=== PATIENT | female | born 1945 | race Caucasian/White ===

== ENCOUNTER 2024-02-28 15:12 | Inpatient (IN) | payer MEDICARE, SELFPAY ==
[2024-02-28] VITALS (12 sets, daily range): BP systolic 129–178; BP diastolic 72–111; PULSE 75–93; RESP 17–36; TEMP 36.6–37.1; O2SAT 90–96; BMI 23.9
--- NOTE | 2024-02-28 16:17 | XRR_ITS ---
PROCEDURE INFORMATION: Exam: XR Chest Exam date and time: 02/28/2024 4:31 PM Age: 78 years old Clinical indication: Cough and fever; Patient HX: HX of testicular cancer; Additional info: SOB, cough TECHNIQUE: Imaging protocol: Radiologic exam of the chest. Views: 1 view. COMPARISON: No relevant prior studies available. FINDINGS: Lungs: No consolidation. Pleural spaces: No sizable pleural effusion or pneumothorax. Heart/Mediastinum: No cardiomegaly. Bones/joints: Unremarkable. XR/XR chest 1V portable [id number] IMPRESSION: No acute intrathoracic findings.
--- NOTE | 2024-02-28 16:17 | PC.NURSE ---
PATIENT PLACED ON 2 L NC DUE TO O2 SATURATION OF 88%.
--- NOTE | 2024-02-28 16:19 | ED_ITS ---
Documented by User: MAXINE Umaña 02/28/24 17:05 HPI - URI/Sore Throat 2 General: Chief Complaint: Upper Respiratory Infection Stated Complaint: cough, sore throat, fever Time Seen by Provider: 02/28/24 16:08 Source: patient and family Mode of arrival: ambulatory Limitations: no limitations History of Present Illness: Patient is a 78-year-old female here along with family for evaluation of shortness of breath, cough, congestion, nasty phlegm production , and subjective fevers. Symptoms have been present over the past 3 to 4 days. Patient is an everyday smoker. She states she has oxygen at home that she is instructed to wear as needed. Reports previous hospitalization last week at [facility] for dehydration and dizziness . She reportedly resides with her who unfortunately recently fractured his leg and is now in a correction. Family is wanting correction placement for patient as well as the was her primary caregiver. MD elicited complaint: fever (subjective), cough and other (dyspnea, congestion) Pertinent past history: COPD Onset (ago): day(s) Consistency: constant Severity: moderate Description of mucous: yellow and green Able to tolerate fluids by mouth: Yes Exacerbating factors: nothing Relieving factors: nothing Context: recent hospitalization Associated symptoms: Reports fever(s) (subjective); Deny abdominal pain, chills, chest pain, diarrhea, headache(s), nasal congestion, nausea, sinus pain or vomiting Treatments prior to arrival: none Review of Systems 2 Const: Reports: fever(s) (subjective); Denies: chills, body aches, fatigue or malaise ENMT: Denies: throat pain, odynophagia, nasal discharge, nasal congestion or sinus pain Card: Denies: chest pain, palpitations, irregular heart rhythm or lightheadedness Resp: Reports: dyspnea, productive cough, change in phlegm color and chest congestion; Denies: pain on inspiration GI: Denies: abdominal pain, nausea, vomiting or diarrhea : Denies: flank pain, dysuria or hematuria Musc: Denies: neck pain, back pain, extremity pain or joint pain Skin/Breast: Denies: rash Neuro: Denies: headache(s), numbness in extremities, weakness in extremities, sensory changes or dizziness Physical Exam 2 Const: COMMON NORMALS: no acute distress, patient oriented x3, no limitations, alert and well nourished GENERAL APPEARANCE: cooperative O RIENTATION/CONSCIOUSNESS: Yes awake, Yes oriented to person, Yes oriented to place and Yes oriented to time HENMT: FACE & SINUS: normal facial exam Neck/C-Spine: COMMON NORMALS: no JVD Chest: COMMONS NORMALS: normal inspection of the chest and normal palpation of entire chest wall Resp: EFFORT & INSPECTION: Yes labored and Yes other (hypoxia-satting 86-87% on RA) AUSCULTATION: diminished lung sounds Cardio: COMMON NORMALS: no JVD, regular rate and regular rhythm RATE: r egular rate RHYTHM: regular rhythm GI: COMMON NORMALS: Normal to inspection, nondistended, normoactive bowel sounds present, Soft to palpation and non-tender PALPATION: Yes Soft to palpation Extremity: COMMON NORMALS: no clubbing, cyanosis or edema, no calf tenderness and no pedal edema GENERAL: Yes normal exam except as noted Neuro: KARMEN COMA SCALE: document GCS findings Karmen coma scale eye opening: Spontaneous [place] coma scale verbal response: Orientated [place] coma scale motor response: Obey commands [place] coma scale total score: 15 COMMON NORMALS: patient oriented x3 SENSORIUM/ORIENTATION: Yes alert, Yes oriented to person, Yes oriented to place and Yes oriented to time Skin: COMMON NORMALS: no rashes or lesions noted GENERAL SKIN EXAM: no rashes or lesions noted Course 2 Vital Signs: Vital signs: Vital Signs Temperature 98 F 02/28/24 15:16 Pulse Rate 90 02/28/24 16:44 Respiratory Rate 18 02/28/24 16:39 Blood Pressure 178/111 02/28/24 15:16 Pulse Oximetry 95 02/28/24 16:39 Oxygen Delivery Me thod Nasal Cannula 02/28/24 16:39 Oxygen Flow Rate 1 02/28/24 16:39 MDM - URI/Sore Throat Lab Data 02/28/24 16:38 02/28/24 16:38 Laboratory Results WBC 24.01 10^3/uL (3.29-11.43) H 02/28/24 16:38 RBC 6.38 10^6/uL (3.85-5.65) H 02/28/24 16:38 Hgb 18.60 g/dL (11.27-16.99) H 02/28/24 16:38 Hct 57.8 % (36-47) H 02/28/24 16:38 MCV 90.6 fl (85-98) 02/28/24 16:38 MCH 29.2 pg (27-33) 02/28/24 16:38 MCHC 32.2 g/dL (30-55) 02/28/24 16:38 RDW 13.4 % (12.1-15.1) 02/28/24 16:38 Plt Count 247 10^3/cmm (157-399) 02/28/24 16:38 MPV 9.9 fL (7.4-10.4) 02/28/24 16:38 Neut % (Auto) 83.9 % 02/28/24 16:38 Lymph % (Auto) 8.2 % 02/28/24 16:38 [place] % (Auto) 6.8 % 02/28/24 16:38 Eos % (Auto) 0.2 % 02/28/24 16:38 Baso % (Auto) 0.4 % 02/28/24 16:38 Neut # (Auto) 20.12 10^3/uL (1.8-7.7) H 02/28/24 16:38 Lymph # (Auto) 2.0 10^3/uL (0.8-4.8) 02/28/24 16:38 [place] # (Auto) 1.6 10^3/uL (0.2-0.9) H 02/28/24 16:38 Eos # (Auto) 0.1 10^3/uL (0.0-0.8) 02/28/24 16:38 Baso # (Auto) 0.1 10^3/uL (0.0-0.1) 02/28/24 16:38 Nucleated RBC % (auto) 0 % 02/28/24 16:38 Nucleated RBCs # 0.0 /100WBC 02/28/24 16:38 Sodium 138 mmol/L (136-145) 02/28/24 16:38 Potassium 3.2 mmol/L (3.5-5.1) L 02/28/24 16:38 Chloride 93 mmol/L (98-107) L 02/28/24 16:38 Carbon Dioxide 34 mmol/L (22-29) H 02/28/24 16:38 Anion Gap 14.2 (5-19) 02/28/24 16:38 BUN 12 mg/dL (8-23) 02/28/24 16:38 Creatinine 0.6 mg/dL (0.5-0.9) 02/28/24 16:38 GFR Calculation Not Reportable 02/28/24 16:38 Glucose 159 mg/dL (65-115) H 02/28/24 16:38 Calculated Osmolality 289 mOsm/kg (285-295) 02/28/24 16:38 Lactic Acid 1.7 mmol/L (0.5-2.2) 02/28/24 16:38 Calcium 9.4 mg/dL (8.5-10.5) 02/28/24 16:38 Total Bilirubin 1.5 mg/dL (0.15-1.2) H 02/28/24 16:38 AST 22 U/L (0-32) 02/28/24 16:38 ALT 30 U/L (0-33) 02/28/24 16:38 Alkaline Phosphatase 86 U/L (35-105) 02/28/24 16:38 Total Protein 7.5 g/dL (6.6-8.7) 02/28/24 16:38 Albumin 3.8 g/dL (3.5-5.2) 02/28/24 16:38 Globulin 3.7 g/dL (1.3-4.6) 02/28/24 16:38 Procalcitonin 0.11 ng/mL (0-0.5) 02/28/24 16:38 SARS-CoV-2 Ag (Rapid) negative (Negative) 02/28/24 16:18 Discharge Plan Discharge Patient Disposition: Admitted As Inpatient Clinical Impression: Bronchitis, Leukocytosis, Hypoxia Condition: Stable Coding Level of Care Code ED Fish Conservationist for Chg Fwd Documented by User: Jhon Douglas MD 02/28/24 17:45 HPI - URI/Sore Throat 2 General: Chief Complaint: Upper Respiratory Infection Stated Complaint: cough, sore throat, fever Time Seen by Provider: 02/28/24 16:08 Physical Exam 2 Neuro: KARMEN COMA SCALE: document GCS findings Karmen coma scale total score: 15 Course 2 Vital Signs: Vital signs: Vital Signs Temperature 98 F 02/28/24 15:16 Pulse Rate 90 02/28/24 16:44 Respiratory Rate 18 02/28/24 16:39 Blood Pressure 178/111 02/28/24 15:16 Pulse Oximetry 95 02/28/24 16:39 Oxygen Delivery Me thod Nasal Cannula 02/28/24 16:39 Oxygen Flow Rate 1 02/28/24 16:39 MDM - URI/Sore Throat Medical Decision Making Patient presents with cough congestion patient is requiring 2 L of oxygen here she also has a leukocytosis of 24 no definite pneumonia on her chest x-ray did start antibiotics we will get blood cultures spoke to the hospitalist will admit Medical Records I reviewed the patient's medical records. Lab Data I reviewed the patient's lab results. 02/28/24 16:38 02/28/24 16:38 Laboratory Results WBC 24.01 10^3/uL (3.29-11.43) H 02/28/24 16:38 RBC 6.38 10^6/uL (3.85-5.65) H 02/28/24 16:38 Hgb 18.60 g/dL (11.27-16.99) H 02/28/24 16:38 Hct 57.8 % (36-47) H 02/28/24 16:38 MCV 90.6 fl (85-98) 02/28/24 16:38 MCH 29.2 pg (27-33) 02/28/24 16:38 MCHC 32.2 g/dL (30-55) 02/28/24 16:38 RDW 13.4 % (12.1-15.1) 02/28/24 16:38 Plt Count 247 10^3/cmm (157-399) 02/28/24 16:38 MPV 9.9 fL (7.4-10.4) 02/28/24 16:38 Neut % (Auto) 83.9 % 02/28/24 16:38 Lymph % (Auto) 8.2 % 02/28/24 16:38 [place] % (Auto) 6.8 % 02/28/24 16:38 Eos % (Auto) 0.2 % 02/28/24 16:38 Baso % (Auto) 0.4 % 02/28/24 16:38 Neut # (Auto) 20.12 10^3/uL (1.8-7.7) H 02/28/24 16:38 Lymph # (Auto) 2.0 10^3/uL (0.8-4.8) 02/28/24 16:38 [place] # (Auto) 1.6 10^3/uL (0.2-0.9) H 02/28/24 16:38 Eos # (Auto) 0.1 10^3/uL (0.0-0.8) 02/28/24 16:38 Baso # (Auto) 0.1 10^3/uL (0.0-0.1) 02/28/24 16:38 Nucleated RBC % (auto) 0 % 02/28/24 16:38 Nucleated RBCs # 0.0 /100WBC 02/28/24 16:38 Sodium 138 mmol/L (136-145) 02/28/24 16:38 Potassium 3.2 mmol/L (3.5-5.1) L 02/28/24 16:38 Chloride 93 mmol/L (98-107) L 02/28/24 16:38 Carbon Dioxide 34 mmol/L (22-29) H 02/28/24 16:38 Anion Gap 14.2 (5-19) 02/28/24 16:38 BUN 12 mg/dL (8-23) 02/28/24 16:38 Creatinine 0.6 mg/dL (0.5-0.9) 02/28/24 16:38 GFR Calculation Not Reportable 02/28/24 16:38 Glucose 159 mg/dL (65-115) H 02/28/24 16:38 Calculated Osmolality 289 mOsm/kg (285-295) 02/28/24 16:38 Lactic Acid 1.7 mmol/L (0.5-2.2) 02/28/24 16:38 Calcium 9.4 mg/dL (8.5-10.5) 02/28/24 16:38 Total Bilirubin 1.5 mg/dL (0.15-1.2) H 02/28/24 16:38 AST 22 U/L (0-32) 02/28/24 16:38 ALT 30 U/L (0-33) 02/28/24 16:38 Alkaline Phosphatase 86 U/L (35-105) 02/28/24 16:38 Total Protein 7.5 g/dL (6.6-8.7) 02/28/24 16:38 Albumin 3.8 g/dL (3.5-5.2) 02/28/24 16:38 Globulin 3.7 g/dL (1.3-4.6) 02/28/24 16:38 Procalcitonin 0.11 ng/mL (0-0.5) 02/28/24 16:38 SARS-CoV-2 Ag (Rapid) negative (Negative) 02/28/24 16:18 All radiology interpretation(s) finalized by discharge Discharge Plan Discharge Patient Disposition: Admitted As Inpatient Clinical Impression: Bronchitis, Leukocytosis, Hypoxia Condition: Stable Coding Level of Care Code ED Fish Conservationist for Candi Goodman
[2024-02-28] MEDS: ipratropium-albuterol 3 mL Neb INHALATION ×2 (16:41→21:09)
[2024-02-28 16:45] LABS: Basophils # 0.1 10^3/uL (0.0-0.1); Basophils % 0.4 %; Eosinophils # 0.1 10^3/uL (0.0-0.8); Eosinophils % 0.2 %; Hematocrit 57.8 % (36-47); Lymphocytes % 8.2 %; Mean Corpuscular HGB Conc 32.2 g/dL (30-55); Mean Corpuscular Hemoglobin 29.2 pg (27-33); Mean Corpuscular Volume 90.6 fl (85-98); Mean Platelet Volume 9.9 fL (7.4-10.4); Monocytes # 1.6 10^3/uL (0.2-0.9); Monocytes % 6.8 %; Neutrophils # 20.12 10^3/uL (1.8-7.7); Neutrophils % 83.9 %; Nucleated Red Blood Cells % 0 %; Platelet Count 247 10^3/cmm (157-399); Red Blood Count 6.38 10^6/uL (3.85-5.65); Red Cell Distribution Width 13.4 % (12.1-15.1); White Blood Count 24.01 10^3/uL (3.29-11.43)
[2024-02-28 17:01] LABS: SARS Covid-2 Antigen negative (Negative)
[2024-02-28 17:09] LABS: Lactic Sepsis W/Reflex 1.7 mmol/L (0.5-2.2)
[2024-02-28] MEDS: hyDRALAzine 20 mg/mL INJ 1 mL 10 MG IVP (17:15)
[2024-02-28] MEDS: levofloxacin-dextrose 5 % 500 MG/100 ML PREMIX 100 MG IV (17:16)
[2024-02-28 17:21] LABS: Alanine Aminotransferase 30 U/L (0-33); Albumin Level 3.8 g/dL (3.5-5.2); Alkaline Phosphatase 86 U/L (35-105); Anion Gap 14.2 (5-19); Aspartate Amino Transferase 22 U/L (0-32); Blood Urea Nitrogen 12 mg/dL (8-23); Calcium 9.4 mg/dL (8.5-10.5); Carbon Dioxide 34 mmol/L (22-29); Chloride 93 mmol/L (98-107); Creatinine Clr Calc Pharmacy 52.0011; Globulin 3.7 g/dL (1.3-4.6); Glucose 159 mg/dL (65-115); Osmolality Calculated 289 mOsm/kg (285-295); Potassium 3.2 mmol/L (3.5-5.1); Sodium 138 mmol/L (136-145); Total Bilirubin 1.5 mg/dL (0.15-1.2); Total Protein 7.5 g/dL (6.6-8.7)
[2024-02-28 17:26] LABS: Procalcitonin 0.11 ng/mL (0-0.5)
--- NOTE | 2024-02-28 17:49 | P.HP_ITS ---
Providers/Chief Complaint 2 Chief Complaint: cough, sore throat, fever History of Present Illness Doris Zurita is a 78 year old female Medications/Allergies Allergies Allergy/AdvReac Type Severity Reaction Status Date / Time magnesium Allergy Unknown Verified 02/28/24 15:29 Penicillins Allergy Unknown Verified 02/28/24 15:29 Sulfa (Sulfonamide Allergy Unknown Verified 02/28/24 15:29 Antibiotics) zinc Allergy ALGY-Conges Verified 02/28/24 15:29 josette Vitals/I&O/Wt Last Vital Signs Temp 98 F 02/28/24 15:16 Pulse 90 02/28/24 16:44 Resp 18 02/28/24 16:39 BP 178/111 02/28/24 15:16 Pulse Ox 95 02/28/24 16:39 O2 Del Method Nasal Cannula 02/28/24 16:39 O2 Flow Rate 1 02/28/24 16:39 Weight last 48 hrs Weight 61.235 kg Data 02/28/24 16:38 02/28/24 16:38 Micro: Microbiology 02/28/24 17:08 Blood Culture - Preliminary Blood SPECIMEN COLLECTED 02/28/24 17:00 Blood Culture - Preliminary Blood SPECIMEN COLLECTED Coding Level of Care Code Acute Code for Chg Fwd
[2024-02-28 18:20] LABS: Adenovirus Not Detected (NOT DETECT); Chlamydia Pneumoniae Not Detected (NOT DETECT); Coronavirus 229E,HKU1,NL63,OC4 Not Detected (NOT DETECT); Human Metapneumovirus Not Detected (NOT DETECT); Human Rhinovirus/Enterovirus Not Detected (NOT DETECT); Influenza A Not Detected (NOT DETECT); Influenza A H1 Not Detected (NOT DETECT); Influenza A H1-2009 Not Detected (NOT DETECT); Influenza A H3 Not Detected (NOT DETECT); Influenza B Not Detected (NOT DETECT); Mycoplasma Pneumoniae Not Detected (NOT DETECT); Parainfluenza Virus Type 1 Not Detected (NOT DETECT); Parainfluenza Virus Type 2 Not Detected (NOT DETECT); Parainfluenza Virus Type 3 Not Detected (NOT DETECT); Parainfluenza Virus Type 4 Not Detected (NOT DETECT); Respiratory Syncytial Virus A Not Detected (NOT DETECT); Respiratory Syncytial Virus B Not Detected (NOT DETECT); SARS-COV-2 Not Detected (NOT DETECT)
[2024-02-28] MEDS: predniSONE 20 mg Tablet 40 MG PO (19:19)
[2024-02-28] MEDS: amlodipine 10 mg Tablet PO (19:20)
--- NOTE | 2024-02-28 19:26 | CTR_ITS ---
PROCEDURE INFORMATION: Exam: CTA Chest With Contrast Exam date and time: 02/28/2024 11:28 PM Age: 78 years old Clinical indication: Possible pe, infectious process, leukocytosis TECHNIQUE: Imaging protocol: Computed tomographic angiography of the chest with contrast. Exam focused on the arteries. 3D rendering (Not supervised by radiologist): MIP and/or 3D reconstructed images were created by the technologist. Radiation optimization: All CT scans at this facility use at least one of these dose optimization techniques: automated exposure control; mA and/or kV adjustment per patient size (includes targeted exams where dose is matched to clinical indication); or iterative reconstruction. Contrast material: OMNI 305; Contrast volume: 100 ml; Contrast route: INTRAVENOUS (IV); COMPARISON: CR XR chest 1V portable [id number] 02/28/2024 4:31 PM RADIATION DOSE METRICS: Total DLP (mGy-cm): 1214 FINDINGS: Pulmonary arteries: Normal. No pulmonary emboli. Aorta: Unremarkable. No aortic aneurysm. No aortic dissection. Lungs: Calcified granulomas in the lungs. Negative for focal pulmonary consolidation. Negative for endobronchial obstruction. Negative for peripheral honeycombing. Pleural spaces: Unremarkable. No pneumothorax. No pleural effusion. Heart: Unremarkable. No cardiomegaly. No pericardial effusion. Esophagus: Unremarkable thoracic esophagus. Mediastinal space: Numerous calcified mediastinal granulomas. Lymph nodes: Negative for thoracic lymphadenopathy. Diaphragm: Slight hiatal hernia. Bones/joints: Unremarkable. No acute fracture. Soft tissues: Unremarkable. PROCEDURE INFORMATION: Exam: CT Abdomen And Pelvis With Contrast Exam date and time: 02/28/2024 11:28 PM Age: 78 years old Clinical indication: Possible pe, infectious process, leukocytosis TECHNIQUE: Imaging protocol: Computed tomography of the abdomen and pelvis with contrast. Radiation optimization: All CT scans at this facility use at least one of these dose optimization techniques: automated exposure control; mA and/or kV adjustment per patient size (includes targeted exams where dose is matched to clinical indication); or iterative reconstruction. Contrast material: OMNI 305; Contrast volume: 100 ml; Contrast route: INTRAVENOUS (IV); COMPARISON: CR XR chest 1V portable [id number] 02/28/2024 4:31 PM RADIATION DOSE METRICS: Total DLP (mGy-cm): 1214 FINDINGS: Liver: Normal. No mass. Gallbladder and biliary ducts: Cholelithiasis. Negative for inflammatory wall thickening. Negative for biliary system dilation. Pancreas: Normal. No ductal dilation. Spleen: Normal. No splenomegaly. Adrenal glands: Tiny benign left adrenal myelolipoma. Normal right adrenal gland. Kidneys and ureters: Multiple simple bilateral renal cysts. Largest cyst exophytic from the left renal upper pole measures 6.2 cm x 4.3 cm. Negative for hydronephrosis. Negative for stones. Stomach and bowel: Diverticulosis coli. Negative for bowel inflammatory changes. Negative for bowel obstruction. Negative for bowel perforation. Negative for pneumatosis intestinalis. Appendix: No evidence of appendicitis. Intraperitoneal space: Unremarkable. No free air. No significant fluid collection. Vasculature: There is significant tortuosity of the abdominal aorta. Fusiform infrarenal abdominal aortic aneurysm measures 5 cm in greatest diameter best seen on axial series 5, image 39 correlated with the coronal reconstruction image 29. Aneurysm extends infrarenal location to the aortoiliac bifurcation. Negative for rupture. Negative for dissection. Lymph nodes: Unremarkable. No enlarged lymph nodes. Urinary bladder: Unremarkable as visualized. Reproductive: Hysterectomy. Bones/joints: No acute fracture. Multiple superior vertebral endplate concavities which appeared to be nonacute. Soft tissues: Unremarkable. CT/CT angio chest w abd pel w con IMPRESSION: 1. Negative for pulmonary artery embolism. 2. No significant pulmonary disease identified. IMPRESSION: 1. Negative for acute abdominopelvic pathology. 2. Large abdominal aortic aneurysm without rupture. Vascular medicine specialist consultation recommended. COMMENTS: Consistent with the [employer]'s Incidental Findings Committee white paper (J Am Yvonne Radiol 2018): Any incidental renal lesion less than 1 cm or classified as too small to characterize, or any incidental cystic renal lesion characterized as simple-appearing, is likely benign. No follow-up imaging is recommended for these lesions per consensus recommendations based on imaging criteria.
--- NOTE | 2024-02-28 19:27 | PC.NURSE ---
nurse segundo to call back to take report. [phone].
--- NOTE | 2024-02-28 19:34 | PC.NURSE ---
report called to segundo. [phone]
--- NOTE | 2024-02-28 21:00 | PM.HP ---
Providers/Chief Complaint Admitting Physician: Vadim Massey MD Chief Complaint: cough, sore throat, fever History of Present Illness Doris Zurita is a 78 year old female with vague PMH. Patient reports that she has a h/o blood cancer but unable to specify any other details. She states she was diagnosed based on a skin biopsy several years ago which started after a brown recluse spider bite. She was recommended to undergo what appears to be bone marrow biopsy but she declined as she did not feel there was much wrong with her. She has had declining health over the past 3 months. She estimates she has had at least 4 episodes of syncope in the past few months for which she has been taken to [facility], most recent being one week ago. She states several tests were performed but she was eventually told that she was dehydrated and released from the hospital last Tuesday. She has had a new oxygen requirement of 3lpm over the past 3 months and has had progressive dyspnea on exertion. She is a chronic smoker but has no formal diagnosis of COPD or asthma. She denies any known h/o CAD or CHF. 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 She is not currently on any medications. No h/o PE. States that she was told she has blood clots around an abdominal mesh, but does not know details whether these are s/c hematomas (noted bruising on abdomen) or DVT. Her has been her primary caregiver for the past few months, however he suffered a fall in their home resulting in a fracture for which he is currently at rehab. When EMS came to transport her , they were concerned about patient's poor health and dependency and called family members in [place] to pick her up. She is currently with her niece- unable to get any additional information from the family. Patient reports feeling much worse over the last 3 days. She has had increased cough, dyspnea and expectoration together with chills. No abdominal pain nausea vomiting or diarrhea. No chest pain. no known home medications Review of Systems Const: Denies: fever(s), chills or body aches Eyes: Denies: change in vision, blurry vision or photophobia ENMT: Reports: hoarseness; Denies: throat pain, enlarged tonsils, odynophagia or nasal congestion Card: Denies: chest pain, palpitations, irregular heart rhythm, edema, swelling of feet/ankles, lightheadedness, pre-syncope, dyspnea on exertion or orthopnea Resp: Denies: dyspnea, productive cough, non-productive cough, wheezing, stridor, pain on inspiration, change in phlegm color, hemoptysis or chest congestion GI: Denies: abdominal pain, nausea, vomiting, hematemesis, coffee ground emesis, dysphagia, heartburn, diarrhea, constipation, GI cramping, change in stool character, hematochezia or melena : Denies: flank pain, difficulty voiding, dysuria, urinary frequency, urinary urgency, urinary hesitancy or hematuria Musc: Denies: neck pain, back pain, extremity pain, joint swelling, joint warmth or deformity Neuro: Denies: headache(s), numbness in extremities, weakness in extremities, sensory changes, difficulty walking, frequent falls, dizziness, vertigo, behavioral changes, Slurred speech present or seizure-like activity Psych: Denies: anxiety, depression, suicidal ideation or homicidal ideation Endo: Denies: polyuria, polydipsia, tired all the time, cold intolerance or hot flashes Sherif/Lymph: Denies: easy bruising or easy bleeding Medications/Allergies Home Medications Medication Instructions Recorded Confirmed Last Taken Type No Known Home Medications 02/29/24 02/29/24 Unknown History Allergies Allergy/AdvReac Type Severity Reaction Status Date / Time magnesium Allergy Unknown Verified 02/28/24 15:29 Penicillins Allergy Unknown Verified 02/28/24 15:29 Sulfa (Sulfonamide Allergy Unknown Verified 02/28/24 15:29 Antibiotics) zinc Allergy ALGY-Conges Verified 02/28/24 15:29 josette Vitals/I&O/Wt Last Vital Signs Temp 97.9 F 02/29/24 20:00 Pulse 92 02/29/24 20:00 Resp 18 02/29/24 20:00 BP 148/77 02/29/24 20:00 Pulse Ox 91 02/29/24 20:00 O2 Del Method Room Air 02/29/24 19:51 O2 Flow Rate 2 02/29/24 14:22 02/29/24 02/29/24 03/01/24 14:59 22:59 06:59 Intake Total 720 / 720 270 / 990 Output Total 50 / 50 Balance 720 / 720 220 / 940 Weight last 48 hrs Weight 73.028 kg Weight 73.255 kg Weight 71.804 kg Weight 61.235 kg Physical Exam Narrative: General: Chronically ill appearing lady, AO x3 HEENT: PERRLA, pupils bilaterally equal and reactive, pallors not present Chest: Normal vesicular breath sounds, scattered b/l wheezing, appeasr to have kyphosis, refuses to sit up in bed for further exam at this time CVS: S1-S2 regular, no murmurs, no tachycardia, no gallops, no rubs Abdomen: Soft, nontender, no organomegaly, bowel sounds present Neuro: No focal deficits, no facial deformity, AO x3, power 5/5 in all limbs Data 02/29/24 04:46 02/29/24 04:46 Micro: Microbiology 02/28/24 17:08 Blood Culture - Preliminary Blood NEGATIVE TO DATE 02/28/24 17:00 Blood Culture - Preliminary Blood NEGATIVE TO DATE 02/28/24 19:48 Gram Stain - Final Sputum - Expectorated Sputum 02/28/24 23:57 Bacterial Antigens - Final Urine Kidney 02/28/24 23:57 Legionella Urinary Antigen - Final Unknown Source A&P Assessment and plan (1) Bronchitis: 78F with vague PMH as outlined above p/w 3 days of worsening cough, chills and expectoration together with leuocytosis B/l wheezing on exam which may be related to acute bronchitis vs COPD CXR without gross consolidation Ceftraixone and azithromycin as cannot exclude bacterial bronchitis given leukocytosis Duoneb and budesonide inhalation (2) Chronic hypoxemic respiratory failure: diagnosed 3 months ago Unclear cause request prior records from [facility] 02 at 3lpm currently MAy have underlying COPD given /o smoking. check echo to assess for CHF. Check EKG and trop series (3) Recurrent [facility]ope: [facility] Patient states that she has recently had CT head and other investigations one week ago , would not repeat for now (4) Failure to thrive: check Hba1c and TSH. (5) Leukocytosis: leukocytosis may be related to acute infection vs ?? h/o hematological malignancy as reported by patients- requested records (6) Unable to care for self: has been dependent on her for ADLS over past 3 months Pt/Ot assessment does not appears to have gross motor deficits on exam has had repeated falls ove rthe past 4 months- with husabnd at [place], she will need safe discharge planning Attestations Medical Necessity Statement*: > 2 midnight admission is anticipated Coding Level of Care Code Acute Code for Chg Fwd Moderate MDM includes number and complexity of problems actively addressed during encounter, amount and/or complexity of data reviewed/ordered and described risk of complication, morbidity or mortality of management as documented Diagnoses Bronchitis J40 Chronic hypoxemic respiratory failure J96.11 Recurrent syncope R55 Failure to thrive Leukocytosis D72.829 Unable to care for self Z78.9
[2024-02-28] MEDS: budesonide 0.5 mg/2 mL Neb INHALATION (21:09)
[2024-02-28 21:20] LABS: Iron 24 ug/dL (37-145); Total Iron Binding Capacity 218 mcg/dl; Unsaturated Iron Binding 194 ug/dL (112-347); Vitamin B12 526 pg/mL (232-1245)
[2024-02-28] MEDS: cefTRIAXone 1,000 MG in sodium chloride 0.9% (plus) 50 ML 100 MG IV (21:34)
[2024-02-28] MEDS: iohexol 350 mg/mL 500 mL Btl (per mL) IV (23:38)
[2024-02-29] VITALS (15 sets, daily range): BP systolic 103–148; BP diastolic 64–90; PULSE 66–92; RESP 14–19; TEMP 36.4–36.9; O2SAT 91–96
[2024-02-29 00:29] LABS: Add Urine Microscopic? YES; Bilirubin Urine Neg (Negative); Blood Urine Neg (Negative); Glucose Urine UA Norm (Normal); Ketones Urine 1+ (Negative); Leukocyte Esterase Urine Negative (Negative); Nitrate Urine Negative (Negative); Protein Urine 1+ (Negative); Specific Gravity, Urine 1.005 (1.005-1.030); Urine Appearance Slightly Cloudy (CLEAR); Urine Color Dark Yellow (Yellow); Urobilinogen Urine 4 mg/dL (Negative); pH Urine 6.5 (5-7)
[2024-02-29 00:30] LABS: Add Urine Culture? No; Bacteria Urine TRACE /hpf; Mucus Urine 1+ /hpf; RBC Urine 0-4 /hpf (0-2); Squamous Epithelial Cell Urine 15-25 /hpf (0-5); Trichomonas Urine 2+ /hpf; WBC Urine 0-4 /hpf (0-5)
[2024-02-29] MEDS: ipratropium-albuterol 3 mL Neb INHALATION ×4 (02:05→19:51)
[2024-02-29 05:14] LABS: Basophils # 0.1 10^3/uL (0.0-0.1); Basophils % 0.3 %; Eosinophils % 0.2 %; Hematocrit 53.5 % (36-47); Lymphocytes % 4.5 %; Mean Corpuscular HGB Conc 32.9 g/dL (30-55); Mean Corpuscular Hemoglobin 29.6 pg (27-33); Mean Corpuscular Volume 89.9 fl (85-98); Mean Platelet Volume 10.2 fL (7.4-10.4); Monocytes # 0.7 10^3/uL (0.2-0.9); Monocytes % 3.3 %; Neutrophils # 20.68 10^3/uL (1.8-7.7); Nucleated Red Blood Cells % 0 %; Platelet Count 255 10^3/cmm (157-399); Red Blood Count 5.95 10^6/uL (3.85-5.65); Red Cell Distribution Width 13.5 % (12.1-15.1); White Blood Count 22.68 10^3/uL (3.29-11.43)
[2024-02-29 05:30] LABS: Estmated Average Glucose 160; Hemoglobin A1C 7.2 % (4.0-6.0)
[2024-02-29 05:45] LABS: Alanine Aminotransferase 23 U/L (0-33); Albumin Level 3.2 g/dL (3.5-5.2); Alkaline Phosphatase 88 U/L (35-105); Anion Gap 14.4 (5-19); Aspartate Amino Transferase 16 U/L (0-32); Blood Urea Nitrogen 13 mg/dL (8-23); Calcium 9.1 mg/dL (8.5-10.5); Carbon Dioxide 33 mmol/L (22-29); Chloride 94 mmol/L (98-107); Creatinine Clr Calc Pharmacy 56.4711; Globulin 3.2 g/dL (1.3-4.6); Glucose 179 mg/dL (65-115); Magnesium 1.9 mg/dL (1.7-2.3); Osmolality Calculated 291 mOsm/kg (285-295); Potassium 3.4 mmol/L (3.5-5.1); Sodium 138 mmol/L (136-145); Total Bilirubin 0.8 mg/dL (0.15-1.2); Total Protein 6.4 g/dL (6.6-8.7)
[2024-02-29 05:46] LABS: Chol HDL Ratio 2.61 mg/dL (0.0-4.40); Cholesterol 99 mg/dL (0-200); HDL Cholesterol 38 mg/dL (60-100); LDL Cholesterol Calculated 47 mg/dL (50-129); LDL HDL Ratio 1.24 RATIO (0.00-3.22); Triglycerides 68 mg/dL (0-150)
[2024-02-29 05:52] LABS: Procalcitonin 0.11 ng/mL (0-0.5)
[2024-02-29 06:02] LABS: Folate Level 8.2 ng/mL (4.8-37.3)
--- NOTE | 2024-02-29 07:59 | PC.PHAR ---
PT STATES TAKES NO MEDICATIONS OR OVER THE COUNTER VITAMINS OR SUPPLEMENTS.
[2024-02-29] MEDS: budesonide 0.5 mg/2 mL Neb INHALATION ×2 (08:21→19:51)
[2024-02-29] MEDS: azithromycin 250 mg Tablet 500 MG PO (08:31)
[2024-02-29] MEDS: pantoprazole DR 40 mg Tablet PO (08:31)
[2024-02-29] MEDS: amlodipine 10 mg Tablet PO (08:31)
[2024-02-29] MEDS: predniSONE 20 mg Tablet 40 MG PO (08:31)
--- NOTE | 2024-02-29 10:55 | USCV_ITS ---
Doris Zurita Age: 78 Gender: F : 1945 Exam Date: 02/29/2024 18:03 Ordering Phys: Dede Masterson MD Technologist: NATHAN [place]am [place] [facility] [place]: worsening dyspnea, hypoxia, recurrent syncope x 3 months, long-term smoker O2 dependent, continues smoking. BP: 128 / 80 HR: 73 Rhythm: Sinus Technical Quality: Adequate MEASUREMENTS (Male / Female) Normal Values 2D ECHO LV Diastolic Diameter PLAX 4.0 cm 4.2 - 5.9 / 3.9 - 5.3 cm IVS Diastolic Thickness 1.2 cm 0.6 - 1.0 / 0.6 - 0.9 cm IVS Systolic Thickness 1.9 cm LVPW Diastolic Thickness 1.3 cm 0.6 - 1.0 / 0.6 - 0.9 cm LVPW Systolic Thickness 1.3 cm LVOT Diameter 1.7 cm LV Ejection Fraction 2D Teich 55.8 % LV Ejection Fraction MOD 2C 53.4 % LV Ejection Fraction 2C AL 52.9 % LA Diameter 4.9 cm Aorta at Sinotubular Diameter 2.5 cm IVC Diameter 1.1 cm M-MODE LA Ao Ratio MM 1.5 AV Cusp Separation MM 1.6 cm DOPPLER AV Peak Velocity 220.0 cm/s LVOT Peak Velocity 139.0 cm/s AV Area Cont Eq vti 2.3 cm squared AV Area Cont Eq pk 1.5 cm squared MV Peak Velocity 128.0 cm/s MV Area PHT 3.3 cm squared Mitral E to A Ratio 0.7 TR Peak Velocity 220.0 cm/s TR Peak Gradient 19.4 mmHg Right Atrial Pressure 3.0 mmHg Pulmonary Artery Systolic Pressu 22.4 mmHg PV Peak Velocity 137.0 cm/s FINDINGS Left Ventricle Normal left ventricular size and systolic function, EF 56%. No regional wall motion abnormalities. Right Ventricle The right ventricle is normal in size and function. Right Atrium The right atrium is normal in size. Left Atrium The left atrium is normal in size. Mitral Valve Trace mitral valve regurgitation. Aortic Valve Features of aortic valve sclerosis. Tricuspid Valve Trace tricuspid valve regurgitation. Pulmonic Valve Pulmonic valve not well visualized. Pericardium No pericardial effusion. Aorta Normal aortic annulus size. IVC Normal inferior vena cava. CONCLUSIONS Normal left ventricular size and systolic function, EF 56%. No regional wall motion abnormalities. Trace mitral valve regurgitation. Features of aortic valve sclerosis. Trace tricuspid valve regurgitation. Estimated pulmonary artery peak systolic pressure 22 mmHg There is no pericardial effusion. There are no intracardiac masses. No similar previous studies are available for comparison Dr Eligio Jerez MD [facility] (Electronically Signed) Final Date: 29 February 2024 19:49 S
[2024-02-29 11:30] LABS: Troponin T (5th) Once 15 ng/L (0-10)
[2024-02-29 11:40] LABS: NT Pro B Type Natriuretic Pept 459 pg/mL (0-450)
[2024-02-29 11:40] LABS: Glucose Point of Care 198 mg/dL (70-110)
[2024-02-29] MEDS: insulin lispro 100 unit/1 mL SUBCUT ×3 (12:04→20:59)
--- NOTE | 2024-02-29 15:51 | PM.PN ---
Subjective Subjective: Patient states she feels better today. CTA of the chest abdomen and pelvis incidentally shows an infrarenal AAA of significant size. Study negative for PE. States that it was difficult to stay in the CT machine due to back pain. She prefers to lay on her right side citing pain. Medications: Reviewed: Yes Vitals/I&O/Wt Last Vital Signs Temp 98.3 F 02/29/24 11:40 Pulse 81 02/29/24 14:22 Resp 18 02/29/24 14:22 BP 128/80 02/29/24 11:40 Pulse Ox 96 02/29/24 14:22 O2 Del Method Nasal Cannula 02/29/24 14:22 O2 Flow Rate 2 02/29/24 14:22 02/29/24 02/29/24 02/29/24 06:59 14:59 22:59 Intake Total 0 / 150 720 / 720 Balance 0 / -250 720 / 720 Weight last 48 hrs Weight 73.028 kg Weight 73.255 kg Weight 71.804 kg Weight 61.235 kg Physical Exam Narrative: General: No acute distress, AO x3 HEENT: PERRLA, pupils bilaterally equal and reactive, pallors not present Chest: Normal vesicular breath sounds, no added sounds, equal good air entry bilaterally CVS: S1-S2 regular, no murmurs, no tachycardia, no gallops, no rubs, scattered wheezing to auscultation B/L Abdomen: Soft, nontender, no organomegaly, bowel sounds present Neuro: No focal deficits, no facial deformity, AO x3, power 5/5 in all limbs Data 03/01/24 14:58 03/01/24 14:58 Micro: Microbiology 02/28/24 19:48 Gram Stain - Final Sputum - Expectorated Sputum 02/28/24 23:57 Bacterial Antigens - Final Urine Kidney 02/28/24 23:57 Legionella Urinary Antigen - Final Unknown Source 02/28/24 17:08 Blood Culture - Preliminary Blood SPECIMEN COLLECTED 02/28/24 17:00 Blood Culture - Preliminary Blood SPECIMEN COLLECTED Other data: Radiology Impressions Chest X-Ray 02/28/24 16:17 IMPRESSION: No acute intrathoracic findings. Chest/Abdomen/Pelvis CT 02/28/24 19:26 IMPRESSION: 1. Negative for pulmonary artery embolism. 2. No significant pulmonary disease identified. IMPRESSION: 1. Negative for acute abdominopelvic pathology. 2. Large abdominal aortic aneurysm without rupture. Vascular medicine specialist consultation recommended. COMMENTS: Consistent with the [employer]'s Incidental Findings Committee white paper (J Am Yvonne Radiol 2018): Any incidental renal lesion less than 1 cm or classified as too small to characterize, or any incidental cystic renal lesion characterized as simple-appearing, is likely benign. No follow-up imaging is recommended for these lesions per consensus recommendations based on imaging criteria. Laboratory Results WBC 22.68 10^3/uL (3.29-11.43) H 02/29/24 04:46 RBC 5.95 10^6/uL (3.85-5.65) H 02/29/24 04:46 Hgb 17.60 g/dL (11.27-16.99) H 02/29/24 04:46 Hct 53.5 % (36-47) H 02/29/24 04:46 MCV 89.9 fl (85-98) 02/29/24 04:46 MCH 29.6 pg (27-33) 02/29/24 04:46 MCHC 32.9 g/dL (30-55) 02/29/24 04:46 RDW 13.5 % (12.1-15.1) 02/29/24 04:46 Plt Count 255 10^3/cmm (157-399) 02/29/24 04:46 MPV 10.2 fL (7.4-10.4) 02/29/24 04:46 Neut % (Auto) 91.0 % 02/29/24 04:46 Lymph % (Auto) 4.5 % 02/29/24 04:46 Stokes % (Auto) 3.3 % 02/29/24 04:46 Eos % (Auto) 0.2 % 02/29/24 04:46 Baso % (Auto) 0.3 % 02/29/24 04:46 Neut # (Auto) 20.68 10^3/uL (1.8-7.7) H 02/29/24 04:46 Lymph # (Auto) 1.0 10^3/uL (0.8-4.8) 02/29/24 04:46 Stokes # (Auto) 0.7 10^3/uL (0.2-0.9) 02/29/24 04:46 Eos # (Auto) 0.0 10^3/uL (0.0-0.8) 02/29/24 04:46 Baso # (Auto) 0.1 10^3/uL (0.0-0.1) 02/29/24 04:46 Nucleated RBC % (auto) 0 % 02/29/24 04:46 Nucleated RBCs # 0.0 /100WBC 02/29/24 04:46 Sodium 138 mmol/L (136-145) 02/29/24 04:46 Potassium 3.4 mmol/L (3.5-5.1) L 02/29/24 04:46 Chloride 94 mmol/L (98-107) L 02/29/24 04:46 Carbon Dioxide 33 mmol/L (22-29) H 02/29/24 04:46 Anion Gap 14.4 (5-19) 02/29/24 04:46 BUN 13 mg/dL (8-23) 02/29/24 04:46 Creatinine 0.7 mg/dL (0.5-0.9) 02/29/24 04:46 GFR Calculation Not Reportable 02/29/24 04:46 Glucose 179 mg/dL (65-115) H 02/29/24 04:46 POC Glucose 198 mg/dL (70-110) H 02/29/24 11:38 Estimat Average Glucose 160 02/29/24 04:46 Hemoglobin A1c 7.2 % (4.0-6.0) H 02/29/24 04:46 Calculated Osmolality 291 mOsm/kg (285-295) 02/29/24 04:46 Lactic Acid 1.7 mmol/L (0.5-2.2) 02/28/24 16:38 Calcium 9.1 mg/dL (8.5-10.5) 02/29/24 04:46 Phosphorus 3.0 mg/dL (2.5-4.5) 02/29/24 04:46 Magnesium 1.9 mg/dL (1.7-2.3) 02/29/24 04:46 Iron 24 ug/dL (37-145) L 02/28/24 16:38 TIBC 218 mcg/dl 02/28/24 16:38 % Saturation 11.0 % (20-50) L 02/28/24 16:38 Unsat Iron Binding 194 ug/dL (112-347) 02/28/24 16:38 Total Bilirubin 0.8 mg/dL (0.15-1.2) 02/29/24 04:46 AST 16 U/L (0-32) 02/29/24 04:46 ALT 23 U/L (0-33) 02/29/24 04:46 Alkaline Phosphatase 88 U/L (35-105) 02/29/24 04:46 Troponin T 5th Gen ng/L 15 ng/L (0-10) H 02/29/24 04:46 NT-Pro-B Natriuret Pep 459 pg/mL (0-450) H 02/29/24 04:46 Total Protein 6.4 g/dL (6.6-8.7) L 02/29/24 04:46 Albumin 3.2 g/dL (3.5-5.2) L 02/29/24 04:46 Globulin 3.2 g/dL (1.3-4.6) 02/29/24 04:46 Triglycerides 68 mg/dL (0-150) 02/29/24 04:46 Cholesterol 99 mg/dL (0-200) 02/29/24 04:46 LDL Cholesterol, Calc 47 mg/dL (50-129) L 02/29/24 04:46 HDL Cholesterol 38 mg/dL (60-100) L 02/29/24 04:46 LDL/HDL Ratio 1.24 RATIO (0.00-3.22) 02/29/24 04:46 Cholesterol/HDL Ratio 2.61 mg/dL (0.0-4.40) 02/29/24 04:46 Vitamin B12 526 pg/mL (232-1245) 02/28/24 16:38 Folate 8.2 ng/mL (4.8-37.3) 02/29/24 04:46 Procalcitonin 0.11 ng/mL (0-0.5) 02/29/24 04:46 TSH 2.30 uIU/mL (0.27-4.20) 02/28/24 16:38 Urine Color Dark yellow (Yellow) A 02/28/24 23:57 Urine Appearance Slightly cloudy (CLEAR) 02/28/24 23:57 Urine pH 6.5 (5-7) 02/28/24 23:57 Ur Specific [place] 1.005 (1.005-1.030) 02/28/24 23:57 Urine Protein 1+ (Negative) H 02/28/24 23:57 Urine Glucose (UA) Norm (Normal) 02/28/24 23:57 Urine Ketones 1+ (Negative) H 02/28/24 23:57 Urine Blood Neg (Negative) 02/28/24 23:57 Urine Nitrate Negative (Negative) 02/28/24 23:57 Urine Bilirubin Neg (Negative) 02/28/24 23:57 Urine Urobilinogen 4 mg/dL (Negative) H 02/28/24 23:57 Ur Leukocyte Esterase Negative (Negative) 02/28/24 23:57 Urine RBC 0-4 /hpf (0-2) H 02/28/24 23:57 Urine WBC 0-4 /hpf (0-5) H 02/28/24 23:57 Ur Squamous Epith Cells 15-25 /hpf (0-5) H 02/28/24 23:57 Amorphous Sediment Not Reportable 02/28/24 23:57 Urine Bacteria Trace /hpf (NONE) 02/28/24 23:57 Urine Mucus 1+ /hpf 02/28/24 23:57 Urine Trichomonas 2+ /hpf H 02/28/24 23:57 Adenovirus (PCR) Not detected (NOT DETECT) 02/28/24 16:25 C. pneumoniae DNA (PCR) Not detected (NOT DETECT) 02/28/24 16:25 Coronavirus 229E (PCR) Not detected (NOT DETECT) 02/28/24 16:25 Human Metapneumovir PCR Not detected (NOT DETECT) 02/28/24 16:25 Influenza A (H1) PCR Not detected (NOT DETECT) 02/28/24 16:25 Influ A (H1/09) PCR Not detected (NOT DETECT) 02/28/24 16:25 Influenza A (H3) PCR Not detected (NOT DETECT) 02/28/24 16:25 Influenza Type A (PCR) Not detected (NOT DETECT) 02/28/24 16:25 Influenza Type B (PCR) Not detected (NOT DETECT) 02/28/24 16:25 M. pneumoniae (PCR) Not detected (NOT DETECT) 02/28/24 16:25 Parainfluenza 1 (PCR) Not detected (NOT DETECT) 02/28/24 16:25 Parainfluenza 2 (PCR) Not detected (NOT DETECT) 02/28/24 16:25 Parainfluenza 3 (PCR) Not detected (NOT DETECT) 02/28/24 16:25 Parainfluenza 4 (PCR) Not detected (NOT DETECT) 02/28/24 16:25 RSV Type A (PCR) Not detected (NOT DETECT) 02/28/24 16:25 RSV Type B (PCR) Not detected (NOT DETECT) 02/28/24 16:25 Entero/Rhino (PCR) Not detected (NOT DETECT) 02/28/24 16:25 SARS-CoV-2 (PCR) Not detected (NOT DETECT) 02/28/24 16:25 SARS-CoV-2 Ag (Rapid) negative (Negative) 02/28/24 16:18 A&P Assessment and plan (1) Bronchitis: 78F with vague PMH p/w 3 days of worsening cough, chills and expectoration together with leuocytosis B/l wheezing on exam which may be related to acute bronchitis vs COPD CXR without gross consolidation ; CTA chest without PE or consolidation Ceftraixone and azithromycin as cannot exclude bacterial bronchitis given leukocytosis Duoneb and budesonide inhalation continued wheezing, prednisone 40mg po daily (2) Chronic hypoxemic respiratory failure: diagnosed 3 months ago Unclear cause request prior records from [facility] [facility] 02 at 3lpm currently MAy have underlying COPD given h/o smoking for over 50 years, not interested in quitting . RBBB on EKG BAseline trop 20, no chest pain, less likely ACS Echo without RWMA, no pulmonary HTN (3) Recurrent syncope: requested past records from [facility] Patient states that she has recently had CT head and other investigations one week ago , would not repeat for now (4) Diabetes mellitus: new diagnosis with A1c at 7.2, insulin sliding scale for now with transition to OHAs at doscharge (5) Leukocytosis: leukocytosis may be related to acute infection vs ?? h/o hematological malignancy as reported by patients- requested records ? polycythemia vera vs secondary polycythemia from smoking (6) Unable to care for self: has been dependent on her for ADLS over past 3 months Pt/Ot assessment does not appears to have gross motor deficits on exam has had repeated falls ove rthe past 4 months- with husabnd at [place], she will need safe discharge planning Plan new diagnosis of HTN: Amlodipine 10mg po daily Attestations Medical Necessity Statement*: continued admisison for iv abx, therapy assessments, dispo planning, awaiting prior records for recurrent syncope eval and reported h/o malignancy Coding Level of Care Code Acute Code for Chg Fwd Moderate MDM includes number and complexity of problems actively addressed during encounter, amount and/or complexity of data reviewed/ordered and described risk of complication, morbidity or mortality of management as documented Diagnoses Bronchitis J40 Chronic hypoxemic respiratory failure J96.11 Recurrent syncope R55 Diabetes mellitus E11.9 Leukocytosis D72.829 Unable to care for self Z78.9
[2024-02-29 17:09] LABS: Glucose Point of Care 232 mg/dL (70-110)
[2024-02-29 20:50] LABS: Glucose Point of Care 186 mg/dL (70-110)
[2024-02-29] MEDS: cefTRIAXone 1,000 MG in sodium chloride 0.9% (plus) 50 ML 100 MG IV (20:59)
[2024-03-01] VITALS (16 sets, daily range): BP systolic 124–186; BP diastolic 71–110; PULSE 64–98; RESP 16–20; TEMP 36.6–37.2; O2SAT 76–97
[2024-03-01] MEDS: ipratropium-albuterol 3 mL Neb INHALATION ×4 (02:19→21:13)
[2024-03-01] MEDS: enoxaparin 40 mg/0.4 mL Syringe SUBCUT (05:34)
[2024-03-01 06:31] LABS: Glucose Point of Care 117 mg/dL (70-110)
[2024-03-01] MEDS: amlodipine 10 mg Tablet PO (08:40)
[2024-03-01] MEDS: predniSONE 20 mg Tablet 40 MG PO (08:40)
[2024-03-01] MEDS: azithromycin 250 mg Tablet 500 MG PO (08:40)
[2024-03-01] MEDS: pantoprazole DR 40 mg Tablet PO (08:40)
[2024-03-01] MEDS: budesonide 0.5 mg/2 mL Neb INHALATION ×2 (08:43→21:14)
--- NOTE | 2024-03-01 09:07 | PC.CHAP ---
Pastoral Care Encounter/Spiritual Assessment Type of Contact [] Declined and rescue fire fighter crash fire visit [] Patient/Family/Request visit [] Outpatient visit [] Follow-up visit [] Physician referral [] Code/Alert [x] Routine visit [] Staff referral [] Actively dying [] Patient sleeping [] Family support [] [] Out of room [] Palliative care [] [] Receiving care in room [] Pre-surgical visit [] Trauma [] Long length of stay [] ICU visit [] Other: Relational/Emotional Strength [x] Patient feels connected with others/family/visitors/staff [] Distress [] Loneliness/isolation [] Abandonment Spirituality of Patient [x] Person of Lilian [] Attends Orthodox of their Lilian [x] Believes in Prayer [] Reads Bible or Anabaptist materials [] There are Spiritual issues to be addressed Office Services Specialist Interventions [x] Prayer [x Active listening [] Non-anxious presence [x] Spiritual/emotional support [] Crisis/trauma care [] Spiritual counseling [] Bereavement support [] Provided bereavement packet [] Provided Bible/devotional materials [] Provided toy/stuffed animal, coloring book to patient or family member [] Provided Communion [] Anointing/[place] [] Salvation [x] Completed spiritual assessment [] Other: Impact on Illness or Injury [] Angry [] Fearful [] Anxious [] Often cries [] Exhaustion [] Unable to work [] Unable to attend jainism [] Unable to walk/stand [] Unable to read [] Unable to drive [] Unable to eat/drink [] Unable to sleep [] Unable to be with family [] Patient intubated [] Other: Summary Time spent with patient 5 min
[2024-03-01 11:11] LABS: Glucose Point of Care 203 mg/dL (70-110)
[2024-03-01] MEDS: insulin lispro 100 unit/1 mL SUBCUT ×3 (11:20→21:00)
--- NOTE | 2024-03-01 14:01 | PM.PN ---
Subjective Subjective: Patient is clinically better today. Still awaiting records from [facility]. Bilateral wheezing is improving. She is sitting up in chair at bedside. Medications: Reviewed: Yes Vitals/I&O/Wt Last Vital Signs Temp 98.9 F 03/01/24 11:56 Pulse 96 03/01/24 13:33 Resp 18 03/01/24 13:25 BP 134/76 03/01/24 11:56 Pulse Ox 95 03/01/24 13:25 O2 Del Method Nasal Cannula 03/01/24 13:25 O2 Flow Rate 2 03/01/24 13:25 02/29/24 03/01/24 03/01/24 22:59 06:59 14:59 Intake Total 270 / 990 250 / 1240 480 / 480 Output Total 50 / 50 Balance 220 / 940 250 / 1190 480 / 480 Weight last 48 hrs Weight 72.03 kg Weight 71.668 kg Weight 73.028 kg Weight 73.255 kg Weight 71.804 kg Weight 61.235 kg Physical Exam Narrative: General: Alert awake and oriented x 3. HEENT: PERRLA, pupils bilaterally equal and reactive, pallors not present Chest: Improved scattered wheezing bilaterally to auscultation CVS: S1-S2 regular, no murmurs, no tachycardia, no gallops, no rubs Abdomen: Soft, nontender, no organomegaly, bowel sounds present Neuro: No focal deficits, no facial deformity, AO x3, power 5/5 in all limbs Data 02/29/24 04:46 02/29/24 04:46 Micro: Microbiology 02/28/24 17:08 Blood Culture - Preliminary Blood NEGATIVE TO DATE 02/28/24 17:00 Blood Culture - Preliminary Blood NEGATIVE TO DATE 02/28/24 19:48 Gram Stain - Final Sputum - Expectorated Sputum A&P Assessment and plan (1) Bronchitis: B/l wheezing on exam which is currently improved today, may be related to acute bronchitis vs COPD CXR without gross consolidation Ceftraixone and azithromycin as cannot exclude bacterial bronchitis given leukocytosis negative respiratory viral panel Continue Duoneb and budesonide inhalation Continue prednisone 40 mg p.o. daily Clinically improving today with treatment. states she feels less congested. Negative bacterial antigens. Negative Legionella antigen. Sputum culture and Gram stain polymicrobial, appears to be respiratory angela. Blood culture negative to date. MRSA nasal screen pending. (2) Chronic hypoxemic respiratory failure: diagnosed 3 months ago Unclear cause request prior records from [facility] 02 at 2lpm currently MAy have underlying COPD given h/o smoking. We have not yet received records from [facility]. These have been requested again today. May need outpatient PFTs for suspected diagnosis of COPD. Troponin series unremarkable. EKG without acute ST-T wave changes. Echocardiogram shows LVEF of 56%. No regional wall motion abnormalities. Trace MR. Aortic valve sclerosis. No signs of pulmonary hypertension. No pericardial effusion. (3) Recurrent syncope: requested past records from [facility] Patient states that she has recently had CT head and other investigations one week ago , would not repeat for now currently she does not have neurological symptoms. No episodes of witnessed syncope in the hospital. Suspect that with elevated hemoglobin and hematocrit greater than 16, recurrent syncope, hypertension, signs of pruritus over the skin especially over the elbows, suspect that she may have polycythemia vera. Alternately this may be related to her history of chronic smoking. (4) Diabetes mellitus: This is a new diagnosis for the patient. HbA1c at 7.2. Started on insulin sliding scale during this hospital admission Plan to transition patient to oral hypoglycemic agents at the time of discharge. (5) Leukocytosis: leukocytosis may be related to acute infection vs ?? h/o hematological malignancy as reported by patients- requested records (6) Unable to care for self: Patient had reported history of dizziness, gait instability. Evaluated by physical therapy today where she showed some unsteadiness with her gait, no loss of consciousness. Became hypertensive with minimal exertion. She had mild dizziness however was able to complete PT assessment. Reviewed OT assessment, patient will likely benefit from continued skilled OT services for increasing independence in ADLs increasing independence and functional mobility. (7) Erythrocytosis: Noted to have hemoglobin greater than 16, hematocrit greater than 49, together with symptoms of dizziness, pruritus, suspect patient may have polycythemia. Alternately this may be related to history of chronic smoking for over 50 years. Check erythropoietin levels, JAK2 mutation, peripheral smear to assess for polycythemia. Discussed with patient that ideally diagnosis of polycythemia vera would involve a bone marrow aspirate. Patient states she has been recommended this in the past, however has declined it. She continues to decline this event today. She states that we can proceed with any peripheral blood testing and if diagnosed with polycythemia she would be open to trying hydroxyurea or phlebotomy if needed. However declines bone marrow testing. Plan Hypertension: Currently better controlled after starting amlodipine 10 mg p.o. daily. Patient states she has been diagnosed with elevated blood pressures in the past. However she does not have a primary care provider, has previously not believed and visiting doctors and therefore does not have much medical history for this reason. Nicotine dependence: Counseling provided, patient not interested in quitting. Will take nicotine patch while in the hospital. DVT prophylaxis: Lovenox 40 mg DNR/DNI appropriate disposition planning is ongoing Awaiting recent records from [facility] regarding her recurrent syncope workup. Attestations Medical Necessity Statement*: Improving with regards to acute bronchitis, suspected polycythemia vera, evaluation as above. Coding Level of Care Code Acute Code for Chg Fwd High MDM includes number and complexity of problems actively addressed during encounter, amount and/or complexity of data reviewed/ordered and described risk of complication, morbidity or mortality of management as documented Diagnoses Bronchitis J40 Chronic hypoxemic respiratory failure J96.11 Recurrent syncope R55 Diabetes mellitus E11.9 Leukocytosis D72.829 Unable to care for self Z78.9 Erythrocytosis D75.1
--- NOTE | 2024-03-01 14:26 | ECG_ITS ---
[facility] Test Date: 2024-03-01 Pat Name: Doris Zurita Department: Room: 270 Gender: Female Angiography Technologist: : 1945 Requested By: Dede Masterson Order Number: [id number] Butch MD: Eligio Jerez M.D. Measurements Intervals [place] Rate: 80 P: -24 OH: 116 QRS: 60 QRSD: 143 T: 19 QT: 418 QTc: 484 Interpretive Statements SINUS RHYTHM WITH SHORT OH INTERVAL RIGHT BUNDLE BRANCH BLOCK [120+ ms QRS DURATION, UPRIGHT V1, 40+ ms S IN I/aVL/V4/V5/V6] No previous ECG available for comparison Electronically Signed On 03-01-2024 23:32:18 CDT by Eligio Jerez M.D. [id number]
[2024-03-01 15:11] LABS: Basophils # 0.1 10^3/uL (0.0-0.1); Basophils % 0.2 %; Hematocrit 55.7 % (36-47); Lymphocytes # 0.8 10^3/uL (0.8-4.8); Lymphocytes % 3.9 %; Mean Corpuscular HGB Conc 32.3 g/dL (30-55); Mean Corpuscular Hemoglobin 29.3 pg (27-33); Mean Corpuscular Volume 90.6 fl (85-98); Mean Platelet Volume 10.2 fL (7.4-10.4); Monocytes # 0.4 10^3/uL (0.2-0.9); Monocytes % 1.9 %; Neutrophils # 18.89 10^3/uL (1.8-7.7); Neutrophils % 93.4 %; Nucleated Red Blood Cells % 0 %; Platelet Count 317 10^3/cmm (157-399); Red Blood Count 6.15 10^6/uL (3.85-5.65); Red Cell Distribution Width 13.7 % (12.1-15.1); White Blood Count 20.25 10^3/uL (3.29-11.43)
[2024-03-01 15:25] LABS: Methicillin-Resist S.aureu PCR NOT DETECTED (NOT DETECTED)
[2024-03-01 15:31] LABS: Alanine Aminotransferase 29 U/L (0-33); Albumin Level 3.8 g/dL (3.5-5.2); Alkaline Phosphatase 97 U/L (35-105); Anion Gap 15.4 (5-19); Aspartate Amino Transferase 20 U/L (0-32); Blood Urea Nitrogen 25 mg/dL (8-23); Calcium 10.2 mg/dL (8.5-10.5); Carbon Dioxide 30 mmol/L (22-29); Chloride 94 mmol/L (98-107); Creatinine Clr Calc Pharmacy 40.7386; Globulin 3.6 g/dL (1.3-4.6); Glucose 221 mg/dL (65-115); Osmolality Calculated 293 mOsm/kg (285-295); Potassium 3.4 mmol/L (3.5-5.1); Sodium 136 mmol/L (136-145); Total Bilirubin 0.4 mg/dL (0.15-1.2); Total Protein 7.4 g/dL (6.6-8.7)
[2024-03-01 15:35] LABS: LAB Peripheral Smear Sent for Review
[2024-03-01 16:41] LABS: Glucose Point of Care 195 mg/dL (70-110)
[2024-03-01 20:19] LABS: Glucose Point of Care 251 mg/dL (70-110)
[2024-03-01] MEDS: cefTRIAXone 1,000 MG in sodium chloride 0.9% (plus) 50 ML 100 MG IV (21:00)
[2024-03-02] VITALS (8 sets, daily range): BP systolic 144–147; BP diastolic 79–86; PULSE 66–88; RESP 16–20; TEMP 36.3–37; O2SAT 89–96
[2024-03-02] MEDS: morphine 4 mg/mL SDV 1 mL 2 MG IVP (00:57)
[2024-03-02] MEDS: ipratropium-albuterol 3 mL Neb INHALATION ×2 (01:38→07:18)
[2024-03-02 05:23] LABS: Basophils % 0.2 %; Eosinophils # 0.1 10^3/uL (0.0-0.8); Eosinophils % 0.2 %; Hematocrit 50.1 % (36-47); Lymphocytes # 2.9 10^3/uL (0.8-4.8); Lymphocytes % 14.4 %; Mean Corpuscular HGB Conc 31.5 g/dL (30-55); Mean Corpuscular Hemoglobin 28.7 pg (27-33); Mean Corpuscular Volume 91.1 fl (85-98); Mean Platelet Volume 10.3 fL (7.4-10.4); Monocytes # 1.5 10^3/uL (0.2-0.9); Monocytes % 7.4 %; Neutrophils # 15.71 10^3/uL (1.8-7.7); Neutrophils % 77.2 %; Nucleated Red Blood Cells % 0 %; Platelet Count 287 10^3/cmm (157-399); Red Cell Distribution Width 13.6 % (12.1-15.1); White Blood Count 20.38 10^3/uL (3.29-11.43)
[2024-03-02 05:40] LABS: Alanine Aminotransferase 21 U/L (0-33); Albumin Level 3.1 g/dL (3.5-5.2); Alkaline Phosphatase 81 U/L (35-105); Anion Gap 12.5 (5-19); Aspartate Amino Transferase 14 U/L (0-32); Blood Urea Nitrogen 27 mg/dL (8-23); Carbon Dioxide 33 mmol/L (22-29); Chloride 102 mmol/L (98-107); Creatinine Clr Calc Pharmacy 56.5555; Globulin 2.8 g/dL (1.3-4.6); Glucose 134 mg/dL (65-115); Osmolality Calculated 305 mOsm/kg (285-295); Potassium 3.5 mmol/L (3.5-5.1); Sodium 144 mmol/L (136-145); Total Bilirubin 0.3 mg/dL (0.15-1.2); Total Protein 5.9 g/dL (6.6-8.7)
[2024-03-02] MEDS: enoxaparin 40 mg/0.4 mL Syringe SUBCUT (05:49)
[2024-03-02 06:27] LABS: Glucose Point of Care 117 mg/dL (70-110)
[2024-03-02] MEDS: budesonide 0.5 mg/2 mL Neb INHALATION (07:18)
[2024-03-02] MEDS: predniSONE 20 mg Tablet 40 MG PO (08:21)
[2024-03-02] MEDS: azithromycin 250 mg Tablet 500 MG PO (08:21)
[2024-03-02] MEDS: pantoprazole DR 40 mg Tablet PO (08:21)
--- NOTE | 2024-03-02 08:51 | PC.SOCIAL ---
IMM Update pg 2 of IMM updated and reviewed w/ patient. Copy provided and copy dated, initialed and placed in chart.
[2024-03-02] MEDS: amlodipine 10 mg Tablet PO (09:23)
[2024-03-02 11:36] LABS: Glucose Point of Care 121 mg/dL (70-110)
--- NOTE | 2024-03-02 16:20 | PM.DCS ---
Discharge Providers Date of Admission: 02/28/24 20:03 Date of Discharge: March 02, 2024 Attending Provider at Admission: Vadim Massey MD Attending Provider at Discharge: Dede Masterson MD Diagnoses at Discharge Discharge Diagnosis (1) Bronchitis: Status: Acute (2) Chronic hypoxemic respiratory failure: Status: Acute (3) Recurrent syncope: Status: Acute (4) Diabetes mellitus: Status: Acute (5) Leukocytosis: Status: Acute (6) Unable to care for self: Status: Acute Reason for Visit Reason for Visit: cough, sore throat, fever Hospital Course Hospital Course This is a 78-year-old lady who presented to the hospital with chief complaints of pulmonary congestion and progressive dyspnea on exertion. Patient is a chronic smoker. No formal diagnosis of COPD or asthma but lungs showing hyperinflation. On the day of admission patient was noted to be dehydrated. She had reported a declining health over the past 3 months. She had had 4 episodes of syncopal fall in her home which had necessitated admission at [facility]. Records are finally available on the day of discharge. In reviewing these patient had presented to [facility] in November, January and most recently in February with falls. She was noted to have chronic leukocytosis in the range of 19-20,000 dating back several months and also noted to have elevated hemoglobin chronically. Hospital course as below. # Acute bronchitis Patient had wheezing on exam, chest x-ray was without any infiltrates. Initially white blood cell count at 24,000 but later on reviewing past records this was noted to be more chronic, in the 20,000 range. She received scheduled nebulization with DuoNeb, budesonide, prednisone 40 mg p.o. daily and empiric antibiotics with ceftriaxone and azithromycin. This has been transitioned to cefdinir at the day of discharge for 3 remaining days. Patient is improving from an acute bronchitis perspective. She has recently been on between 2 to 3 L/min supplemental O2 for the last 3 months, this is continue. # Chronic erythrocytosis and leukocytosis. Reviewed her hemoglobin to be greater than 16, hematocrit to be ~55. Suspect polycythemia to be the underlying cause. This may be related to secondary polycythemia from chronic smoking for over 50 years versus polycythemia vera. EPO levels and JAK2 peripheral blood testing have been ordered, these remain pending at the time of discharge. Please follow-up with primary care physician and hematology for the same. Referral provided to get established with Dr. Brennan locally. Patient has refused bone marrow biopsy in the past and continues to refuse this even now. She states that if peripheral workup reveals a diagnosis of polycythemia vera, she would be willing to go for hydroxyurea treatment if indicated. # Generalized weakness, recurrent falls. Reviewed CT head from [facility] from November 2023. Chronic small vessel ischemic disease. Otherwise there were no acute findings. Echocardiogram completed here on February 29, 2024 showing normal LVEF 50 to 56%. No regional wall motion abnormalities. Features of aortic valve sclerosis. Her fall has previously resulted in a left patellar fracture diagnosed at [place]. Conservative management was recommended for the same. # New diagnosis of diabetes mellitus, HbA1c of 7.2 Started on metformin 500 mg p.o. twice daily # New diagnosis of essential hypertension Started on amlodipine 10 mg p.o. daily # Incidentally noted AAA. Significant tortuosity of the abdominal aorta with fusiform infrarenal abdominal aortic aneurysm measuring 5 cm in greatest diameter. Aneurysm extends to the aortoiliac bifurcation. Negative for rupture or dissection. In reviewing past CT scans from [facility], this has been a chronic finding at least over the past 6 months. In January 2024 there was questionable intramural thrombus versus dissection noted, she was evaluated by vascular surgery at [facility] and this was not considered to be a significant finding. Outpatient follow-up was recommended. It appears she was referred to see Dr. Mcdonald from vascular surgery as an outpatient. Patient will decide whether she wishes to pursue further diagnosis in this regard. # Dependence in ADLs. Patient states she has been dependent on her for most of her ADLs over the past 3 months. Her unfortunately has suffered a fracture and is therefore no longer in their home. Given her overall deconditioned state it was thought she would be unsafe to return home to live by herself. She was evaluated by physical therapy in the hospital, thought to benefit from skilled PT intervention to gain strength and stability to promote independence for safe return home. She is being [facility]ed [facility]. Physical Exam Narrative: General: No acute distress, AO x3 HEENT: PERRLA, pupils bilaterally equal and reactive, pallors not present Chest: Normal vesicular breath sounds, no added sounds, equal good air entry bilaterally CVS: S1-S2 regular, no murmurs, no tachycardia, no gallops, no rubs Abdomen: Soft, nontender, no organomegaly, bowel sounds present Neuro: No focal deficits, no facial deformity, AO x3, power 5/5 in all limbs Discharge Data Studies Completed and Pending Completed Studies During Hospitalization Category Date Time Status CTA chest CT abdomen pelvis [CT angio chest w abd pel w Cat Scan 02/28/24 19:26 Completed con] Stat XR chest 1V portable [id number] Urgent Exams 02/28/24 16:17 Completed CV. echo complete* [id number] Routine Ultrasound 02/29/24 10:55 Completed Pending at discharge Category Date Time Status Blood Culture Stat Lab 02/28/24 17:08 Results Erythropoietin Routine Lab 03/01/24 14:58 Received Miscellaneous Test Routine Lab 03/01/24 14:58 Received Radiology Impressions Chest X-Ray 02/28/24 16:17 IMPRESSION: No acute intrathoracic findings. Chest/Abdomen/Pelvis CT 02/28/24 19:26 IMPRESSION: 1. Negative for pulmonary artery embolism. 2. No significant pulmonary disease identified. IMPRESSION: 1. Negative for acute abdominopelvic pathology. 2. Large abdominal aortic aneurysm without rupture. Vascular medicine specialist consultation recommended. COMMENTS: Consistent with the [employer]'s Incidental Findings Committee white paper (J Am Yvonne Radiol 2018): Any incidental renal lesion less than 1 cm or classified as too small to characterize, or any incidental cystic renal lesion characterized as simple-appearing, is likely benign. No follow-up imaging is recommended for these lesions per consensus recommendations based on imaging criteria. Laboratory Results WBC 20.38 10^3/uL (3.29-11.43) H 03/02/24 04:57 RBC 5.50 10^6/uL (3.85-5.65) 03/02/24 04:57 Hgb 15.80 g/dL (11.27-16.99) 03/02/24 04:57 Hct 50.1 % (36-47) H 03/02/24 04:57 MCV 91.1 fl (85-98) 03/02/24 04:57 MCH 28.7 pg (27-33) 03/02/24 04:57 MCHC 31.5 g/dL (30-55) 03/02/24 04:57 RDW 13.6 % (12.1-15.1) 03/02/24 04:57 Plt Count 287 10^3/cmm (157-399) 03/02/24 04:57 MPV 10.3 fL (7.4-10.4) 03/02/24 04:57 Neut % (Auto) 77.2 % 03/02/24 04:57 Lymph % (Auto) 14.4 % 03/02/24 04:57 [place] % (Auto) 7.4 % 03/02/24 04:57 Eos % (Auto) 0.2 % 03/02/24 04:57 Baso % (Auto) 0.2 % 03/02/24 04:57 Neut # (Auto) 15.71 10^3/uL (1.8-7.7) H 03/02/24 04:57 Lymph # (Auto) 2.9 10^3/uL (0.8-4.8) 03/02/24 04:57 [place] # (Auto) 1.5 10^3/uL (0.2-0.9) H 03/02/24 04:57 Eos # (Auto) 0.1 10^3/uL (0.0-0.8) 03/02/24 04:57 Baso # (Auto) 0.0 10^3/uL (0.0-0.1) 03/02/24 04:57 Nucleated RBC % (auto) 0 % 03/02/24 04:57 Nucleated RBCs # 0.0 /100WBC 03/02/24 04:57 Peripher Smr Path Cons Sent for review 03/01/24 14:58 Sodium 144 mmol/L (136-145) 03/02/24 04:57 Potassium 3.5 mmol/L (3.5-5.1) 03/02/24 04:57 Chloride 102 mmol/L (98-107) 03/02/24 04:57 Carbon Dioxide 33 mmol/L (22-29) H 03/02/24 04:57 Anion Gap 12.5 (5-19) 03/02/24 04:57 BUN 27 mg/dL (8-23) H 03/02/24 04:57 Creatinine 0.7 mg/dL (0.5-0.9) 03/02/24 04:57 GFR Calculation Not Reportable 03/02/24 04:57 Glucose 134 mg/dL (65-115) H 03/02/24 04:57 POC Glucose 121 mg/dL (70-110) H 03/02/24 11:32 Estimat Average Glucose 160 02/29/24 04:46 Hemoglobin A1c 7.2 % (4.0-6.0) H 02/29/24 04:46 Calculated Osmolality 305 mOsm/kg (285-295) H 03/02/24 04:57 Lactic Acid 1.7 mmol/L (0.5-2.2) 02/28/24 16:38 Calcium 9.0 mg/dL (8.5-10.5) 03/02/24 04:57 Phosphorus 3.0 mg/dL (2.5-4.5) 02/29/24 04:46 Magnesium 1.9 mg/dL (1.7-2.3) 02/29/24 04:46 Iron 24 ug/dL (37-145) L 02/28/24 16:38 TIBC 218 mcg/dl 02/28/24 16:38 % Saturation 11.0 % (20-50) L 02/28/24 16:38 Unsat Iron Binding 194 ug/dL (112-347) 02/28/24 16:38 Total Bilirubin 0.3 mg/dL (0.15-1.2) 03/02/24 04:57 AST 14 U/L (0-32) 03/02/24 04:57 ALT 21 U/L (0-33) 03/02/24 04:57 Alkaline Phosphatase 81 U/L (35-105) 03/02/24 04:57 Troponin T 5th Gen ng/L 15 ng/L (0-10) H 02/29/24 04:46 NT-Pro-B Natriuret Pep 459 pg/mL (0-450) H 02/29/24 04:46 Total Protein 5.9 g/dL (6.6-8.7) L D 03/02/24 04:57 Albumin 3.1 g/dL (3.5-5.2) L 03/02/24 04:57 Globulin 2.8 g/dL (1.3-4.6) 03/02/24 04:57 Triglycerides 68 mg/dL (0-150) 02/29/24 04:46 Cholesterol 99 mg/dL (0-200) 02/29/24 04:46 LDL Cholesterol, Calc 47 mg/dL (50-129) L 02/29/24 04:46 HDL Cholesterol 38 mg/dL (60-100) L 02/29/24 04:46 LDL/HDL Ratio 1.24 RATIO (0.00-3.22) 02/29/24 04:46 Cholesterol/HDL Ratio 2.61 mg/dL (0.0-4.40) 02/29/24 04:46 Vitamin B12 526 pg/mL (232-1245) 02/28/24 16:38 Folate 8.2 ng/mL (4.8-37.3) 02/29/24 04:46 Procalcitonin 0.11 ng/mL (0-0.5) 02/29/24 04:46 TSH 2.30 uIU/mL (0.27-4.20) 02/28/24 16:38 Urine Color Dark yellow (Yellow) A 02/28/24 23:57 Urine Appearance Slightly cloudy (CLEAR) 02/28/24 23:57 Urine pH 6.5 (5-7) 02/28/24 23:57 Ur Specific [place] 1.005 (1.005-1.030) 02/28/24 23:57 Urine Protein 1+ (Negative) H 02/28/24 23:57 Urine Glucose (UA) Norm (Normal) 02/28/24 23:57 Urine Ketones 1+ (Negative) H 02/28/24 23:57 Urine Blood Neg (Negative) 02/28/24 23:57 Urine Nitrate Negative (Negative) 02/28/24 23:57 Urine Bilirubin Neg (Negative) 02/28/24 23:57 Urine Urobilinogen 4 mg/dL (Negative) H 02/28/24 23:57 Ur Leukocyte Esterase Negative (Negative) 02/28/24 23:57 Urine RBC 0-4 /hpf (0-2) H 02/28/24 23:57 Urine WBC 0-4 /hpf (0-5) H 02/28/24 23:57 Ur Squamous Epith Cells 15-25 /hpf (0-5) H 02/28/24 23:57 Amorphous Sediment Not Reportable 02/28/24 23:57 Urine Bacteria Trace /hpf (NONE) 02/28/24 23:57 Urine Mucus 1+ /hpf 02/28/24 23:57 Urine Trichomonas 2+ /hpf H 02/28/24 23:57 Adenovirus (PCR) Not detected (NOT DETECT) 02/28/24 16:25 C. pneumoniae DNA (PCR) Not detected (NOT DETECT) 02/28/24 16:25 Coronavirus 229E (PCR) Not detected (NOT DETECT) 02/28/24 16:25 Human Metapneumovir PCR Not detected (NOT DETECT) 02/28/24 16:25 Influenza A (H1) PCR Not detected (NOT DETECT) 02/28/24 16:25 Influ A (H1/09) PCR Not detected (NOT DETECT) 02/28/24 16:25 Influenza A (H3) PCR Not detected (NOT DETECT) 02/28/24 16:25 Influenza Type A (PCR) Not detected (NOT DETECT) 02/28/24 16:25 Influenza Type B (PCR) Not detected (NOT DETECT) 02/28/24 16:25 M. pneumoniae (PCR) Not detected (NOT DETECT) 02/28/24 16:25 Parainfluenza 1 (PCR) Not detected (NOT DETECT) 02/28/24 16:25 Parainfluenza 2 (PCR) Not detected (NOT DETECT) 02/28/24 16:25 Parainfluenza 3 (PCR) Not detected (NOT DETECT) 02/28/24 16:25 Parainfluenza 4 (PCR) Not detected (NOT DETECT) 02/28/24 16:25 RSV Type A (PCR) Not detected (NOT DETECT) 02/28/24 16:25 RSV Type B (PCR) Not detected (NOT DETECT) 02/28/24 16:25 Entero/Rhino (PCR) Not detected (NOT DETECT) 02/28/24 16:25 SARS-CoV-2 (PCR) Not detected (NOT DETECT) 02/28/24 16:25 SARS-CoV-2 Ag (Rapid) negative (Negative) 02/28/24 16:18 MRSA (PCR) Not detected (NOT DETECTED) 02/28/24 21:40 Vitals Last Vital Signs Temp 97.7 F 03/02/24 11:45 Pulse 79 07/12/24 11:45 Resp 18 03/02/24 11:45 BP 144/86 03/02/24 11:45 Pulse Ox 94 03/02/24 11:45 O2 Del Method Room Air 03/02/24 11:45 O2 Flow Rate 2 03/02/24 07:15 Discharge Plan Discharge Patient Disposition: Xfer SNF Condition: Stable Prescriptions: New acetaminophen 325 mg Tablet 650 mg PO Q6H PRN (Reason: Mild/Mod Pain Or Temp >/= 101) Qty: 30 0RF prednisone 20 mg Tablet 40 mg PO DAILY 3 Days Qty: 6 0RF amlodipine 10 mg Tablet 10 mg PO DAILY 30 Days Qty: 30 0RF pantoprazole 40 mg Tablet,Delayed Release (Dr/Ec) 40 mg PO DAILY 30 Days Qty: 30 0RF cefdinir 300 mg capsule 300 mg PO Q12H 3 Days Qty: 6 0RF fluticasone propion-salmeterol 250-50 mcg/dose blister with device 1 inh inhalation BID 30 Days Qty: 60 0RF Spiriva with HandiHaler 18 mcg capsule, w/inhalation device 1 cap inhalation DAILY 30 Days Qty: 30 0RF Rx Instructions: puncture 1 cap using device; one dose = 2 inhalations metformin 500 mg tablet 500 mg PO BIDWMEAL 30 Days Qty: 60 0RF Discharge Orders: Discharge Order (Routine); Ordered 03/02/24 Ordered By: Dede Masterson Referrals: [facility] [Outside] Jovani Brennan MD [Physician] - 7-10 days (new patient, establish care. Newly diagnosed DM, HTN, ? possible COPD, ? chronic leukoerythrocytosis, suspect polycythemia vera vs secondary polycythemia- pending EPO and SANAM ) Ayden Wood MD [Hospitalist] - 1 month (chronic leukoerythrocytosis, suspect polycythemia vera vs secondary polycythemia- pending EPO and SANAM ) Discharge Diet: Usual diet Discharge Activity: Resume usual activity Patient Instructions: Opioid Safety Discharge Attestations Time Spent in Discharge Care*: greater than 30 min Quality Metrics Clinical Quality Measures [ No reported AMI, CVA or VTE this stay] Coding Level of Care Code Acute Code for Chg Fwd Diagnoses Bronchitis J40 Chronic hypoxemic respiratory failure J96.11 Recurrent syncope R55 Diabetes mellitus E11.9 Leukocytosis D72.829 Unable to care for self Z78.9
[2024-03-06 13:35] LABS: Erythropoietin 1.8 mIU/mL (2.6-18.5)
== END 2024-03-02 14:12 | disposition skilled nursing facility (03) | DRG 202 ==
LOC: ER 17:44 → MEDSURG 02-29 04:54
PROVIDERS: Physician Assistant; Admitting Provider Student in an Organized Health Care Education/Training Program; Emergency Provider Emergency Medicine; Visit Provider Student in an Organized Health Care Education/Training Program
DX: J20.9 Acute bronchitis, unspecified (principal); J96.11 Chronic respiratory failure with hypoxia; F17.210 Nicotine dependence, cigarettes, uncomplicated; Z99.81 Dependence on supplemental oxygen; R62.7 Adult failure to thrive; R55 Syncope and collapse; I71.43 Infrarenal abdominal aortic aneurysm, without rupture; I45.10 Unspecified right bundle-branch block; E11.9 Type 2 diabetes mellitus without complications; Z79.4 Long term (current) use of insulin; D75.1 Secondary polycythemia; Z53.29 Procedure and treatment not carried out because of patient's decision for other reasons; I10 Essential (primary) hypertension; Z66 Do not resuscitate; R29.6 Repeated falls; D72.829 Elevated white blood cell count, unspecified
CPT/HCPCS: 36415; 36416; 71045; 71275; 74177; 80053; 80061; 80503; 81001; 82607; 82668; 82746; 82962; 83036; 83540; 83550; 83605; 83735; 83880; 84100; 84145; 84443; 84484; 85025; 86403; 87040; 87070; 87205; 87426; 87449; 87486; 87581; 87633; 87641; 93005; 93306; 94640; 94664; 96365; 96372; 96375; 97116; 97161; 97165; 97530; 97535; 99285; J0360; J0696; J1650; J1815; J1956; J2270; J7512; J7626; Q0144; Q9967

== ENCOUNTER 2024-08-06 14:19 | Emergency (ER) | payer MEDICARE, SELFPAY ==
--- NOTE | 2024-08-06 14:29 | ED_ITS ---
HPI - Extremity Injury (Upper) General: Chief Complaint: Extremity Injury, Upper Stated Complaint: rt shoulder pain Time Seen by Provider: 08/06/24 14:21 Source: patient and EMS Mode of arrival: EMS Limitations: no limitations History of Present Illness: Patient is a 79-year-old female presents to ED today for evaluation of a right shoulder injury that she sustained just prior to arrival after accidentally tripping and falling over a cord and landing directly onto the right shoulder. She denies any other injuries or complaints at this time. Denies striking her head or LOC. No neck or back pain. MD complaint: injury to: right and shoulder Onset (ago): hour(s) Other Extremity Injury: Right: shoulder Other injuries: none Place: home Severity: moderate Relieving factors: immobilization Exacerbating factors: movement of extremity Context: fall Associated symptoms: Reports no associated symptoms; Denies neck pain or weakness in extremities Related Data Home Medications Medication Instructions Recorded Confirmed pantoprazole 40 mg tablet,delayed 40 mg PO DAILY 05/14/24 05/14/24 release Previous Rx's Medication Instructions Recorded albuterol sulfate 90 mcg/actuation 1 inh inhalation QID PRN shortness 05/14/24 aerosol inhaler of breath or wheezing #8.5 grams amlodipine 10 mg tablet 10 mg PO DAILY 90 days #90 tabs 05/14/24 fluticasone 250 mcg-salmeterol 50 1 inh inhalation BID #60 ea 05/14/24 mcg/dose blistr powdr for inhalation (Advair Diskus) metformin 500 mg tablet,extended 500 mg PO BID #180 tabs 05/14/24 release 24 hr hydrocodone 5 mg-acetaminophen 325 1 tab PO Q6H PRN pain #14 tabs 08/06/24 mg tablet Allergies Allergy/AdvReac Type Severity Reaction Status Date / Time magnesium Allergy Unknown Verified 08/06/24 14:55 Penicillins Allergy Unknown Verified 08/06/24 14:55 Sulfa (Sulfonamide Allergy Unknown Verified 08/06/24 14:55 Antibiotics) zinc Allergy ALGY-Conges Verified 08/06/24 14:55 josette Review of Systems Eyes: Denies: change in vision, blurry vision, photophobia, eye discharge, floaters or seeing flashes ENMT: Denies: throat pain, odynophagia, ear or mastoid pain, ear discharge, nasal discharge, epistaxis or sinus pain Card: Denies: chest pain, palpitations, lightheadedness, syncope or pre- syncope Resp: Denies: dyspnea or pain on inspiration GI: Denies: abdominal pain : Denies: flank pain or hematuria Musc: Reports: joint pain (R shoulder) and limited range of motion (R shoulder); Denies: neck pain, back pain or extremity pain Neuro: Denies: headache(s), numbness in extremities, weakness in extremities, sensory changes or dizziness PFSH ED PFSH: Medical History Severe tobacco use disorder Essential hypertension Abdominal aortic aneurysm Brain aneurysm Polycythemia Diabetes mellitus Surgical History Hx of appendectomy S/P gastric surgery H/O: hysterectomy Family History Father Heart disease Mother Pancreatic cancer Social History Smoking and tobacco/nicotine status: current every day tobacco/nicotine user cigarettes [ Other cigarette details: 10/23 PPD, hx of 120PY] Alcohol intake: never Substance/Drug Use: never Adopted: No Lives independently: Yes Household members: spouse Housing: House Physical Exam Const: COMMON NORMALS: no acute distress, average body habitus, patient oriented x3, no limitations, healthy appearing, alert and well nourished GENERAL APPEARANCE: cooperative ORIENTATION/CONSCIOUSNESS: Yes awake, Yes oriented to person, Yes oriented to place and Yes oriented to time HENMT: COMMON NORMALS: normocephalic, atraumatic and TM's normal bilaterally HEAD & SCALP: normal to inspection, normocephalic and atraumatic; no Falk's sign, no hematoma and no raccoon eyes FACE & SINUS: normal facial exam TYMPANIC MEMBRANE: TM's normal bilaterally MOUTH: other (no intraoral injuries noted) Eye: COMMON NORMALS: Equal, round and reactive pupils present and EOMs intact bilaterally GENERAL EYE: appearance normal, both eyes and all related s tructures and normal light reflex PUPIL: Yes Equal, round and reactive pupils present DIRECT OPHTHALMOSCOPY: Yes normal light reflex Neck/C-Spine: COMMON NORMALS: full ROM GENERAL: Yes normal visual inspection CERVICAL SPINE: Yes cervical ROM normal, No pain with cervical ROM, No Cervical spine tenderness, No step off deformity and No Paracervical muscle tenderness Chest: COMMONS NORMALS: normal inspection of the chest and normal palpation of entire chest wall Resp: COMMON NORMALS: normal respiratory effort and clear to auscultation bilaterally AUSCULTATION: clear to auscultation bilaterally Cardio: COMMON NORMALS: regular rate and regular rhythm RATE: regular rate RHYTHM: regular rhythm GI: COMMON NORMALS: Normal to inspection, nondistended, normoactive bowel sounds present, Soft to palpation, non-tender, No hepatosplenomegaly present and no masses INSPECTION: Yes normal to inspection and No abdominal wall ecchymosis AUSCULTATION: Yes normoactive bowel sounds PALPATION: Yes Soft to palpation and Yes No hepatosplenomegaly present Back/Pelvis: COMMON NORMALS: thoracic and lumbar spine normal to inspection, no thoracic nor lumbar tenderness and thoraco-lumbar ROM normal Extremity: GENERAL: Yes normal exam except as noted RIGHT UPPER EXTREMITY: Yes shoulder joint (TTP R posterior shoulder) Right shoulder: Yes Right shoulder joint inspection exam (normal gross inspection), Yes Right shoulder joint ROM exam (limited due to pain) and Yes Right shoulder joint neurovascular exam (normal) Neuro: KARMEN COMA SCALE: document GCS findings [place] coma scale eye opening: Spontaneous Karmen coma scale verbal response: Orientated [place] coma scale motor response: Obey commands [place] coma scale total score: 15 COMMON NORMALS: patient oriented x3, CN's II-XII intact bilaterally, moves all extremities, no focal motor deficits, no sensory deficits noted and gait normal SENSORIUM/ORIENTATION: Yes alert, Yes oriented to person, Yes oriented to place and Yes oriented to time SPEECH: speech normal GAIT: Yes Normal gait present Skin: COMMON NORMALS: no rashes or lesions noted GENERAL SKIN EXAM: no rashes or lesions noted TRAUMA: no lacerations or abrasions Course Vital Signs: Vital signs: Vital Signs Temperature 97.9 F 08/06/24 14:52 Pulse Rate 76 08/06/24 16:11 Respiratory Rate 18 08/06/24 14:52 Blood Pressure 199/123 08/06/24 16:11 Pulse Oximetry 97 08/06/24 16:11 Oxygen Delivery Me thod Room Air 08/06/24 14:52 MDM - Extremity Injury (Upper) Medical Decision Making XR of the right shoulder is unremarkable. Will have her follow-up with primary care for further evaluation. Will be placed in a sling for comfort. Will be given pain meds that she can use sparingly. Patient was extremely hypertensive upon arrival. Patient tells me this is only secondary to pain. She refused IM pain medication here. I ordered her blood pressure medications here which she was hesitant to take stating I have beet juice at home that does the same thing . She tells me she has not been taking her high blood pressure medications. Patient does not check her blood pressures at home. After dosing her with blood pressure meds here, she does not want to stay to monitor and wants to go home. Discussed risks of blood pressures as high as she is running. Recommend she keep a blood pressure log and follow-up with primary care as soon as possible as she most likely needs to be back on hypertensive medication. Return to ED precautions given. Medical Records I reviewed the patient's medical records. Lab Data Radiology Impressions Shoulder X-Ray 08/06/24 14:29 IMPRESSION: 1. No acute fracture of the right shoulder. Followup radiographs recommended in 7-14 days if clinical concern for fracture persists. 2. Incidental/nonacute findings are listed in the report. All radiology interpretation(s) finalized by discharge Discharge Plan Discharge Patient Disposition: Home Clinical Impression: Injury of right shoulder Qualifiers: Encounter type: initial encounter Qualified Code(s): S49.91XA - Unspecified injury of right shoulder and upper arm, initial encounter Hypertension Qualifiers: Hypertension type: primary hypertension Qualified Code(s): I10 - Essential (primary) hypertension Condition: Stable Prescriptions: New hydrocodone-acetaminophen 5-325 mg tablet 1 tab PO Q6H PRN (Reason: pain) Qty: 14 0RF Rx Instructions: May start with 0.5 tab q 6 hours and increase to one tab if needed No Action pantoprazole 40 mg tablet,delayed release (DR/EC) 40 mg PO DAILY amlodipine 10 mg tablet 10 mg PO DAILY 90 Days Qty: 90 1RF metformin 500 mg tablet extended release 24 hr 500 mg PO BID Qty: 180 1RF fluticasone propion-salmeterol [Advair Diskus] 250-50 mcg/dose blister with device 1 inh inhalation BID Qty: 60 3RF albuterol sulfate 90 mcg/actuation HFA aerosol inhaler 1 inh inhalation QID PRN (Reason: shortness of breath or wheezing) Qty: 8.5 2RF Discharge Orders: Discharge ED (Routine); Ordered 08/06/24 Ordered By: Samantha Weaver Referrals: Rangel Castellanos MD [Primary Care Provider] - Activity Restrictions/Additional Instructions: As we discussed, please follow-up with primary care later this week for reevaluation of your shoulder pain. As we discussed, your x-ray was unremarkable. Will place you in a sling for comfort. You need to begin keeping a blood pressure log at home and discuss with primary care. Coding Level of Care Code ED Binder Stripper Machine for Candi Goodman
--- NOTE | 2024-08-06 14:29 | XRR_ITS ---
PROCEDURE INFORMATION: Exam: XR Right Shoulder Exam date and time: 08/06/2024 2:57 PM Age: 79 years old Clinical indication: Injury or trauma; Fall; Blunt trauma (contusions or hematomas); Shoulder; Right; Additional info: Fall/injury TECHNIQUE: Imaging protocol: Radiologic exam of the right shoulder. Views: 2 or more views. COMPARISON: CT angio chest w abd pel w con 02/28/2024 11:28 PM FINDINGS: Bones/joints: No acute fracture. No dislocation. Bones are diffusely osteopenic. Mild hypertrophic changes of the right acromioclavicular joint. Small osteophytes the right glenoid and right humeral head. Multilevel degenerative changes of varying severity in the visualized spine. Osseous findings are stable. Lungs: Visualized lungs are clear. Soft tissues: No soft tissue swelling or soft tissue emphysema. No radiopaque foreign body. XR/XR shoulder RT min 2V* [id number] IMPRESSION: 1. No acute fracture of the right shoulder. Followup radiographs recommended in 7-14 days if clinical concern for fracture persists. 2. Incidental/nonacute findings are listed in the report.
[2024-08-06 14:52] VITALS: BP 214/115; PULSE 85; RESP 18; TEMP 36.6; O2SAT 91
[2024-08-06 15:40] VITALS: BP 199/123
[2024-08-06] MEDS: amlodipine 10 mg Tablet PO (15:40)
[2024-08-06] MEDS: cloNIDine 0.1 mg Tablet PO (15:40)
[2024-08-06 15:45] VITALS: BP 199/123; PULSE 87; O2SAT 97
--- NOTE | 2024-08-06 16:10 | PC.NURSE ---
PT HYPERTENSIVE UPON DISCHARGE. MAXINE YUAN AWARE. PER PT SHE WILL MANAGE HER BP AT HOME. MAXINE YUAN.
[2024-08-06 16:11] VITALS: BP 199/123; PULSE 76; O2SAT 97
== END 2024-08-06 16:12 | disposition home or self-care (01) ==
PROVIDERS: Emergency Provider Physician Assistant; PCP Family Medicine
DX: S49.91XA Unspecified injury of right shoulder and upper arm, initial encounter (principal); I10 Essential (primary) hypertension; Z79.84 Long term (current) use of oral hypoglycemic drugs; F17.210 Nicotine dependence, cigarettes, uncomplicated; E11.9 Type 2 diabetes mellitus without complications; W01.0XXA Fall on same level from slipping, tripping and stumbling without subsequent striking against object, initial encounter
CPT/HCPCS: 73030; 99284